=== PATIENT | male | born 1970 | race Two or more races ===

== ENCOUNTER 2019-05-17 10:47 | Observation (INO) | payer SELFPAY ==
--- NOTE | 2019-05-17 11:14 | ER Document Report ---
ED Medical Screen (RME) - General Chief Complaint: Hemorrhoids Stated Complaint: RECTAL PAIN Time Seen by Provider: 05/17/19 11:11 Mode of Arrival: Ambulatory Information source: Patient Notes: 48-year-old male with history of constipation and hemorrhoids presents to the emergency department with complaints of bleeding hemorrhoids. Reports he took a taxi here and blood was in his pants. Reports he used Preparation H without any relief of symptoms. I have greeted and performed a rapid initial assessment of this patient. A comprehensive ED assessment and evaluation of the patient, analysis of test results and completion of the medical decision making process will be conducted by additional ED providers. Dictation of this chart was performed using voice recognition software; therefo re, there may be some unintended grammatical errors. TRAVEL OUTSIDE OF THE [place] IN LAST 30 DAYS: No - Related Data Allergies/Adverse Reactions: acetaminophen [From Tylenol] Allergy (Verified 04/07/14 00:35) ibuprofen Allergy (Verified 04/07/14 00:35) Past Medical History - Social History Chew tobacco use (# tins/day): No Frequency of alcohol use: Occasional Drug Abuse: None Musculoskeltal Medical History: Reports Hx Musculoskeletal Trauma - Immunizations Hx Diphtheria, Pertussis, Tetanus Vaccination: No Physical Exam - Vital signs Vitals: Temp Pulse Resp BP Pulse Ox 98.2 F 73 16 152/106 H 99 05/17/19 10:52 05/17/19 10:52 05/17/19 10:52 05/17/19 10:52 05/17/19 10:52 Course - Vital Signs Vital signs: Temp Pulse Resp BP Pulse Ox 98.2 F 73 16 152/106 H 99 05/17/19 10:52 05/17/19 10:52 05/17/19 10:52 05/17/19 10:52 05/17/19 10:52
[2019-05-17 11:40] LABS: HEMATOCRIT 42.1 % (37.9-51.0); MEAN CORPUSCULAR VOLUME 87 fl (80-97); RED BLOOD COUNT 4.85 10^6/uL (4.35-5.55); RED CELL DISTRIBUTION WIDTH 12.7 % (11.5-14.0); WHITE BLOOD COUNT 3.6 10^3/uL (4.0-10.5)
[2019-05-17 12:15] LABS: HEMOGLOBIN 14.1 g/dL (13.5-17.0); MEAN CORPUSCULAR HEMOGLOBIN 29.1 pg (27.0-33.4)
[2019-05-17 12:16] LABS: MEAN CORPUSCULAR HGB CONC 33.5 g/dL (32.0-36.0)
[2019-05-17 12:20] LABS: ABSOLUTE LYMPHOCYTES# (MANUAL) 1.5 10^3/uL (0.5-4.7); ABSOLUTE MONOCYTES # (MANUAL) 0.1 10^3/uL (0.1-1.4); BAND NEUTROPHILS % (MANUAL) 1 % (3-5); BASOPHILS % (MANUAL) 3 % (0-2); EOSINOPHILS % (MANUAL) 1 % (0-6); LYMPHOCYTES % (MANUAL) 38 % (13-45); MONOCYTES % (MANUAL) 4 % (3-13); SEGMENTED NEUTROPHILS % (MAN) 50 % (42-78); TOTAL CELLS COUNTED 100
[2019-05-17 12:21] LABS: ANISOCYTOSIS SLIGHT; TARGET CELLS SLIGHT; TOXIC VACUOLATION PRESENT
[2019-05-17 12:22] LABS: PLATELET CLUMPS PRESENT; PLATELET COMMENT ADEQUATE; PLATELET COUNT 204 10^3/uL (150-450)
[2019-05-17 13:21] LABS: APPEARANCE,URINE CLEAR; BILIRUBIN,URINE NEGATIVE (NEGATIVE); COLOR,URINE YELLOW; GLUCOSE, URINE NEGATIVE (NEGATIVE); KETONES,URINE NEGATIVE (NEGATIVE); LEUKOCYTE ESTERASE,URINE NEGATIVE (NEGATIVE); NITRITE,URINE NEGATIVE (NEGATIVE); PROTEIN,URINE 100 mg/dL (NEGATIVE); URINE SPECIFIC GRAVITY 1.018; UROBILINOGEN,URINE NEGATIVE mg/dL (<2.0)
[2019-05-17] MEDS ORDERED: NORMAL SALINE 1000 ML 1,000 ML IV ONE ×2 (13:53→15:14)
--- NOTE | 2019-05-17 14:57 | ER Document Report ---
ED General - General Chief Complaint: Hemorrhoids Stated Complaint: RECTAL PAIN Time Seen by Provider: 05/17/19 11:11 Mode of Arrival: Ambulatory TRAVEL OUTSIDE OF THE [place] IN LAST 30 DAYS: No - HPI Notes: 48-year-old male presents the ED for complaints of having a bleeding hemorrhoid for the last week, has tried Preparation H without for relief. States pain is 7/10, throbbing. States his bleeding has subsided a little bit with Preparation H. Patient has had history of hemorrhoids in the past, has been able to manage them on his own, has never had rectal surgery. Denies any bleeding disorders, clotting disorders. Denies fevers, chills, chest pain,palpitations, shortness of breath, dyspnea, nausea, vomiting, diarrhea, abdominal pain, hematuria,neck pain, weakness, bowel or bladder dysfunction, saddle anesthesia, numbness or tingling in bilateral upper or lower extremities equally, muscle paralysis, weakness in bilateral upper or lower extremities equally or rash. - Related Data Allergies/Adverse Reactions: acetaminophen [From Tylenol] Allergy (Verified 04/07/14 00:35) ibuprofen Allergy (Verified 04/07/14 00:35) Past Medical History - General Information source: Patient - Social History Smoking Status: Former Smoker Chew tobacco use (# tins/day): No Frequency of alcohol use: Occasional Drug Abuse: None Family History: Reviewed & Not Pertinent Patient has suicidal ideation: No Patient has homicidal ideation: No Musculoskeletal Medical History: Reports Hx Musculoskeletal Trauma - Immunizations Hx Diphtheria, Pertussis, Tetanus Vaccination: No Review of Systems - Review of Systems Constitutional: No symptoms reported EENT: No symptoms reported Cardiovascular: No symptoms reported Respiratory: No symptoms reported Gastrointestinal: See HPI Genitourinary: No symptoms reported Male Genitourinary: No symptoms reported Musculoskeletal: No symptoms reported Skin: No symptoms reported Hematologic/Lymphatic: No symptoms reported Neurological/Psychological: No symptoms reported Physical Exam - Vital signs Vitals: Temp Pulse Resp BP Pulse Ox 98.2 F 73 16 152/106 H 99 05/17/19 10:52 05/17/19 10:52 05/17/19 10:52 05/17/19 10:52 05/17/19 10:52 - Notes Notes: PHYSICAL EXAMINATION: GENERAL: Well-appearing, well-nourished and in no acute distress. HEAD: Atraumatic, normocephalic. EYES: Pupils equal round and reactive to light, extraocular movements intact, sclera anicteric, conjunctiva are normal. ENT: Nares patent, oropharynx clear without exudates. Moist mucous membranes. NECK: Normal range of motion, supple without lymphadenopathy LUNGS: Breath sounds clear to auscultation bilaterally and equal. No wheezes rales or rhonchi. HEART: Regular rate and rhythm without murmurs ABDOMEN: Soft, nontender, nondistended abdomen. No guarding, no rebound. No masses appreciated. : Jose Gomez, RN tile grader, noted thrombosed external hemorrhoid, noted active bleeding. Musculoskeletal: Normal range of motion, no pitting or edema. No cyanosis. NEUROLOGICAL: Cranial nerves grossly intact. Normal speech, normal gait. Normal sensory, motor exams PSYCH: Normal mood, normal affect. SKIN: Warm, Dry, normal turgor, no rashes or lesions noted. Course - Re-evaluation Re-evalutation: 05/17/19 18:45 Afebrile slightly hypertensive in no distress. Consulted with Dr. Lance Cox, surgeon psychological operations, to assess patient at bedside for thrombosed hemorrhoid that needs surgery at 1530, at bedside, requested that patient had topical viscous lidocaine to numb patient, he will zenobia hemorrhoid at bedside. At 1800, Dr. Ramsey at bedside, was unable to zenobia at bedside, feels that patient needs to be brought to the OR, will admit patient to surgical service, pt was agreeable with plan of care. - Vital Signs Vital signs: Temp Pulse Resp BP Pulse Ox 98.2 F 73 16 152/106 H 99 05/17/19 10:52 05/17/19 10:52 05/17/19 10:52 05/17/19 10:52 05/17/19 10:52 - Laboratory Result Diagrams: 05/17/19 11:20 05/17/19 11:20 Laboratory results interpreted by me: 05/17/19 05/17/19 11:20 12:59 WBC 3.6 L Band Neutrophils % 1 L Basophils % (Manual) 3 H Urine Protein 100 H Urine Blood MODERATE H Discharge - Discharge Clinical Impression: Hemorrhoid, Thrombosed external hemorrhoid Condition: Stable Disposition: ADMITTED INPATIENT Admitting Provider: Surgicalist - Dr. Lance Cox Unit Admitted: OR
[2019-05-17] MEDS ORDERED: LIDOCAINE 1% INJ-PF (10 MG/ML) 30 ML SDV INJ ONE (15:28)
[2019-05-17] MEDS ORDERED: LIDOCAINE 4%/TETRACAINE 0.5%/EPI 0.18% 5 ML TOPICAL SOLN TOP ONE (15:28)
[2019-05-17] MEDS ORDERED: LIDOCAINE 1.5%/EPINEPHRINE INJ-PF 30 ML SDV INJ ONE (15:28)
[2019-05-17] MEDS ORDERED: LIDOCAINE 1%/EPINEPHRINE INJ 20 ML VIAL ONE (15:42)
[2019-05-17] MEDS ORDERED: LIDOCAINE 2%/EPINEPHRINE INJ 20 ML VIAL ONE (15:42)
[2019-05-17] MEDS ORDERED: DEXMEDETOMIDINE INJ 80 MCG/20 ML VIAL IV ONE (17:59)
[2019-05-17] MEDS ORDERED: MIDAZOLAM 2 MG/2 ML INJ ONE (17:59)
[2019-05-17] MEDS ORDERED: FENTANYL CITRATE INJ/PF 100 MCG/2 ML AMPUL ONE (17:59)
[2019-05-17] MEDS ORDERED: PROPOFOL INJ 200 MG/20 ML VIAL IV ONE (18:00)
[2019-05-17] MEDS ORDERED: PIPERACILLIN/TAZOBACTAM 3.375 GM VIAL IV ONE (18:04)
[2019-05-17] MEDS ORDERED: BUPIVACAINE HCL 0.5%-EPI 1:200000 INJ/PF 30 ML VIAL ONE (18:11)
--- NOTE | 2019-05-17 18:11 | PDOC H&P ---
History of Present Illness Admission Date/PCP: 05/17/19 Patient complains of: pains rectal area History of Present Illness: DESI OLIVARES is a 48 year old male with known hemorrhoids past 8- 10years. At times it will prolapse but he still can push it back in. % days ago started having constipation followed by painful hemorrhoids. He was not able to push it back in because of severe pains. Today felt warm and started bleeding from hemorrhoid area. Social History Smoking Status: Former Smoker Family History Family History: Reviewed & Not Pertinent Parental Family History Reviewed: Yes Children Family History Reviewed: No Sibling(s) Family History Reviewed.: No Medication/Allergy Home Medications: No Home Medications 04/07/14 Allergies/Adverse Reactions: acetaminophen [From Tylenol] Allergy (Verified 04/07/14 00:35) ibuprofen Allergy (Verified 04/07/14 00:35) Review of Systems Constitutional: PRESENT: as per HPI Gastrointestinal: PRESENT: constipation, other - rectal pains Physical Exam Vital Signs: Temp Pulse Resp BP Pulse Ox 98.2 F 73 16 152/106 H 99 05/17/19 10:52 05/17/19 10:52 05/17/19 10:52 05/17/19 10:52 05/17/19 10:52 Intake & Output 05/16/19 05/17/19 05/18/19 06:59 06:59 06:59 Intake Total 1999 Balance 1999 Weight 55.6 kg General appearance: PRESENT: severe distress Head exam: PRESENT: atraumatic Eye exam: PRESENT: conjunctiva pink Mouth exam: PRESENT: dry mucosa Neck exam: PRESENT: full ROM Respiratory exam: PRESENT: clear to auscultation rosemarie Cardiovascular exam: PRESENT: RRR Pulses: PRESENT: normal radial pulses Vascular exam: PRESENT: normal capillary refill GI/Abdominal exam: PRESENT: soft Rectal exam: PRESENT: tenderness - Prolapsed hemorrhoids very tender more on the right side. Bleeding noted on the left side especially when touching and pushing it out Attempted to push it back in but unable to. Very tender despite topical lidocaine Extremities exam: PRESENT: full ROM Musculoskeletal exam: PRESENT: ambulatory Neurological exam: PRESENT: alert, oriented to person, oriented to place, oriented to time, oriented to situation Psychiatric exam: PRESENT: appropriate affect Skin exam: PRESENT: normal color, warm Results Laboratory Results: 05/17/19 11:20 05/17/19 15:49 05/17/19 05/17/19 05/17/19 11:20 11:20 12:59 WBC 3.6 L RBC 4.85 Hgb 14.1 Hct 42.1 MCV 87 MCH 29.1 MCHC 33.5 RDW 12.7 Plt Count 204 Seg Neutrophils % Not Reportable Sodium Cancelled Cancelled Potassium Cancelled Cancelled Chloride Cancelled Cancelled Carbon Dioxide Cancelled Cancelled Anion Gap Cancelled Cancelled BUN Cancelled Cancelled Creatinine Cancelled Cancelled Est GFR ( Amer) Cancelled Cancelled Est GFR (Non-Af Amer) Cancelled Cancelled Glucose Cancelled Cancelled Calcium Cancelled Cancelled Total Bilirubin Cancelled Cancelled AST Cancelled Cancelled Alkaline Phosphatase Cancelled Cancelled Total Protein Cancelled Cancelled Albumin Cancelled Cancelled Urine Color Urine Appearance Urine pH Ur Specific [place] Urine Protein Urine Glucose (UA) Urine Ketones Urine Blood Urine Nitrite Ur Leukocyte Esterase Urine WBC (Auto) Urine RBC (Auto) 05/17/19 05/17/19 05/17/19 12:59 13:20 15:49 WBC RBC Hgb Hct MCV MCH MCHC RDW Plt Count Seg Neutrophils % Sodium Cancelled Cancelled Potassium Cancelled Cancelled Chloride Cancelled Cancelled Carbon Dioxide Cancelled Cancelled Anion Gap Cancelled Cancelled BUN Cancelled Cancelled Creatinine Cancelled Cancelled Est GFR ( Amer) Cancelled Cancelled Est GFR (Non-Af Amer) Cancelled Cancelled Glucose Cancelled Cancelled Calcium Cancelled Cancelled Total Bilirubin Cancelled Cancelled AST Cancelled Cancelled Alkaline Phosphatase Cancelled Cancelled Total Protein Cancelled Cancelled Albumin Cancelled Cancelled Urine Color YELLOW Urine Appearance CLEAR Urine pH 6.0 Ur Specific [place] 1.018 Urine Protein 100 H Urine Glucose (UA) NEGATIVE Urine Ketones NEGATIVE Urine Blood MODERATE H Urine Nitrite NEGATIVE Ur Leukocyte Esterase NEGATIVE Urine WBC (Auto) 1 Urine RBC (Auto) 14 Assessment & Plan - Diagnosis (1) prolapsed,thrombosed,bleeding hemorrhoid Is this a current diagnosis for this admission?: Yes - Time Time Spent: 30 to 50 Minutes - Inpatient Certification Medical Necessity: Need For IV Fluids, Need for IV Antibiotics, Need for Surgery - Plan Summary Plan Summary: He has a slight shift to the left on his CBC. He felt feverish. Will start IV antibiotics Will do emergency hemorrhoidectomy in the OR
[2019-05-17 18:39] LABS: ABSOLUTE BASOPHILS # (AUTO) 0.1 10^3/uL (0.0-0.2); ABSOLUTE LYMPHOCYTES (AUTO) 1.3 10^3/uL (0.5-4.7); ABSOLUTE MONOCYTES (AUTO) 0.2 10^3/uL (0.1-1.4); ABSOLUTE NEUT (AUTO) 2.5 10^3/uL (1.7-8.2); BASOPHILS % (AUTO) 2.3 % (0-2); EOSINOPHILS % (AUTO) 0.5 % (0-6); HEMATOCRIT 42.5 % (37.9-51.0); LYMPHOCYTES % (AUTO) 31.9 % (13-45); MEAN CORPUSCULAR VOLUME 87 fl (80-97); MONOCYTES % (AUTO) 4.4 % (3-13); PLATELET COUNT 202 10^3/uL (150-450); RED BLOOD COUNT 4.86 10^6/uL (4.35-5.55); RED CELL DISTRIBUTION WIDTH 12.9 % (11.5-14.0); SEGMENTED NEUTROPHILS % (AUTO) 60.9 % (42-78); TOTAL CELLS COUNTED % (AUTO) 100 %; WHITE BLOOD COUNT 4.1 10^3/uL (4.0-10.5)
[2019-05-17 18:49] LABS: HEMOGLOBIN 14.3 g/dL (13.5-17.0); MEAN CORPUSCULAR HEMOGLOBIN 29.3 pg (27.0-33.4); MEAN CORPUSCULAR HGB CONC 33.5 g/dL (32.0-36.0)
[2019-05-17] MEDS ORDERED: LIDOCAINE 2% JELLY 30 ML TUBE ONE (19:12)
[2019-05-17] MEDS ORDERED: MEPERIDINE HCL/PF INJ 25 MG/1 ML DISP.SYRIN IV PRN (19:17)
[2019-05-17] MEDS ORDERED: PROMETHAZINE HCL INJ 25 MG/1 ML VIAL IV PRN ×2 (19:17)
[2019-05-17] MEDS ORDERED: DIPHENHYDRAMINE HCL 50 MG/ML VIAL IV PRN (19:17)
[2019-05-17] MEDS ORDERED: MORPHINE SULFATE 10 MG/ML INJ IV PRN ×2 (19:17→19:29)
[2019-05-17] MEDS ORDERED: FENTANYL CITRATE INJ/PF 100 MCG/2 ML AMPUL IV PRN ×3 (19:17)
[2019-05-17] MEDS ORDERED: ONDANSETRON HCL INJ/PF 4 MG/2 ML SDV IV PRN (19:28)
[2019-05-17] MEDS ORDERED: NORMAL SALINE 1000 ML 1,000 ML IV PRN (19:30)
--- NOTE | 2019-05-17 19:32 | Operative Report ---
Operative Report DATE OF SURGERY: 05/17/19 PREOPERATIVE DIAGNOSIS: Prolapsed ,thrombosed,bleeding external hemorrhoid POSTOPERATIVE DIAGNOSIS: same OPERATION: Hemorrhoidectomy SURGEON: JANEEN KENT ANESTHESIA: LMAC TISSUE REMOVED OR ALTERED: Hemorrhoid COMPLICATIONS: None ESTIMATED BLOOD LOSS: 5 cc QUANTITATIVE BLOOD LOSS: 5 INTRAOPERATIVE FINDINGS: Prolapse, thrombosed and bleeding hemorrhoid right side PROCEDURE: Patient was placed in prone position and given adequate IV sedation. The perianal area was then prepped and draped in the usual sterile fashion. Appropriate timeout was then called. Local anesthesia was then injected surrounding the right hemorrhoid. Digital exam was done and no evidence of internal hemorrhoid or any other lesions noted by the examining finger. The hemorrhoid appears to be only on the right side occupying the whole right side of the anorectal area. The bleeding appears to have stopped. The hemorrhoid appears to be thrombosed and prolapse. It was then grasped with an Allis clamp and then serially coagulated and divided with the use of the LigaSure. The whole hemorrhoid was removed. It was cauterized at the junction of the mucocutaneous area. No bleeding after complete removal of the hemorrhoid. The hemorrhoid was passed to the table to be sent for pathology. No evidence of abscess or purulent drainage around the area of the hemorrhoid. Patient had a fever of 100 degrees in the OR. The rectal area was dilated to at least 2 fingers. It was then further prepped with again with Betadine and a sponge stick. A Gelfoam with surrounding lidocaine gel was then placed over the operative site and used as tampon primarily for hemostasis. Sterile dressing with 4 x 4 and ABD pad was placed over the operative site. Patient tolerated procedure well needle was sponge counts were all correct. Patient then brought to the the PACU in stable condition.
[2019-05-17] MEDS ORDERED: OXYCODONE-ACETAMINOPHEN 5-325 MG TABLET PO PRN (20:25)
[2019-05-17] MEDS: PIPERACILLIN SODIUM/TAZOBACTAM 3.375 GM in NORMAL SALINE 100 ML IV SCH (23:32)
[2019-05-18] MEDS ORDERED: PIPERACILLIN/TAZOBACTAM 3.375 GM VIAL IV SCH
[2019-05-18 04:58] LABS: HEMATOCRIT 40.3 % (37.9-51.0); MEAN CORPUSCULAR VOLUME 87 fl (80-97); PLATELET COUNT 186 10^3/uL (150-450); RED BLOOD COUNT 4.65 10^6/uL (4.35-5.55); RED CELL DISTRIBUTION WIDTH 12.8 % (11.5-14.0)
[2019-05-18 05:26] LABS: WHITE BLOOD COUNT 10.2 10^3/uL (4.0-10.5)
[2019-05-18 05:27] LABS: HEMOGLOBIN 12.4 g/dL (13.5-17.0); MEAN CORPUSCULAR HEMOGLOBIN 26.7 pg (27.0-33.4)
[2019-05-18 05:28] LABS: MEAN CORPUSCULAR HGB CONC 29.2 g/dL (32.0-36.0)
[2019-05-18] MEDS: PIPERACILLIN SODIUM/TAZOBACTAM 3.375 GM in NORMAL SALINE 100 ML IV SCH ×2 (06:07→11:42)
--- NOTE | 2019-05-18 11:41 | PDOC DISCHARGE SUMMARY ---
General - Admit/Disc Date/PCP Admission Date/Primary Care Provider: 05/17/19 20:18 Discharge Date: 05/18/19 - Discharge Diagnosis Final Diagnosis: prolapsed, bleeding,thrombosed external hemorrhoid unable to be reduced [id number] hemorrhoid with bleeding ,prolapsed and thrombosed - Assessment Summary: Patient has been complaining of pains along the hemorrhoid site for the past few days. He went to the ED where he was noted to have very tender hemorrhoid and appears to be prolapse and thrombosed with some bleeding. Patient taken to the OR where hemorrhoidectomy was performed. Patient continue IV antibiotics. He had a low-grade fever in the OR of about 100. Because of this patient was given antibiotics overnight. On the morning of 05/18/2019 patient feels a lot better and just had a bowel movement. No bleeding from the operative site. Patient feels good. He was instructed to do sitz bath or running warm water go over the operative site for about 5 minutes twice a day. He was instructed just to take Tylenol PRN for pain. Was able to take Percocet without any problems and therefore doubt his allergy to Tylenol. Patient instructed to follow-up in the surgical clinic in 2weeks. - Additional Information Resuscitation Status: Full Code Referrals: [facility] [Provider Group] - 05/22/19 2:45 pm Home Medications: No Home Medications 04/07/14 Physical Exam Vital Signs: Temp Pulse Resp BP Pulse Ox 98.2 F 61 16 154/97 H 98 05/18/19 07:59 05/18/19 07:59 05/18/19 07:59 05/18/19 07:59 05/18/19 07:59 Intake & Output 05/17/19 05/18/19 05/19/19 06:59 06:59 06:59 Intake Total 5221 Output Total 1740 Balance 3481 Weight 56.7 kg Results Laboratory Results: WBC 10.2 10^3/uL (4.0-10.5) D 05/18/19 03:57 RBC 4.65 10^6/uL (4.35-5.55) 05/18/19 03:57 Hgb 12.4 g/dL (13.5-17.0) L 05/18/19 03:57 Hct 40.3 % (37.9-51.0) 05/18/19 03:57 MCV 87 fl (80-97) 05/18/19 03:57 MCH 26.7 pg (27.0-33.4) L 05/18/19 03:57 MCHC 29.2 g/dL (32.0-36.0) L 05/18/19 03:57 RDW 12.8 % (11.5-14.0) 05/18/19 03:57 Plt Count 186 10^3/uL (150-450) 05/18/19 03:57 Lymph % (Auto) 31.9 % (13-45) 05/17/19 18:20 [place] % (Auto) 4.4 % (3-13) 05/17/19 18:20 Eos % (Auto) 0.5 % (0-6) 05/17/19 18:20 Baso % (Auto) 2.3 % (0-2) H 05/17/19 18:20 Absolute Neuts (auto) 2.5 10^3/uL (1.7-8.2) 05/17/19 18:20 Absolute Lymphs (auto) 1.3 10^3/uL (0.5-4.7) 05/17/19 18:20 Absolute Monos (auto) 0.2 10^3/uL (0.1-1.4) 05/17/19 18:20 Absolute Eos (auto) 0.0 10^3/uL (0.0-0.6) 05/17/19 18:20 Absolute Basos (auto) 0.1 10^3/uL (0.0-0.2) 05/17/19 18:20 Total Counted 100 05/17/19 11:20 Seg Neutrophils % 60.9 % (42-78) 05/17/19 18:20 Seg Neuts % (Manual) 50 % (42-78) 05/17/19 11:20 Band Neutrophils % 1 % (3-5) L 05/17/19 11:20 Lymphocytes % (Manual) 38 % (13-45) 05/17/19 11:20 Atypical Lymphs % 3 % (0) 05/17/19 11:20 Monocytes % (Manual) 4 % (3-13) 05/17/19 11:20 Eosinophils % (Manual) 1 % (0-6) 05/17/19 11:20 Basophils % (Manual) 3 % (0-2) H 05/17/19 11:20 Abs Neuts (Manual) 1.8 10^3/uL (1.7-8.2) 05/17/19 11:20 Abs Lymphs (Manual) 1.5 10^3/uL (0.5-4.7) 05/17/19 11:20 Abs Monocytes (Manual) 0.1 10^3/uL (0.1-1.4) 05/17/19 11:20 Absolute Eos (Manual) 0.0 10^3/uL (0.0-0.6) 05/17/19 11:20 Abs Basophils (Manual) 0.1 10^3/uL (0.0-0.2) 05/17/19 11:20 Toxic Vacuolation PRESENT 05/17/19 11:20 Clumped Platelets PRESENT 05/17/19 11:20 Platelet Comment ADEQUATE 05/17/19 11:20 Anisocytosis SLIGHT 05/17/19 11:20 Target Cells SLIGHT 05/17/19 11:20 PT Cancelled 05/17/19 18:20 INR Cancelled 05/17/19 18:20 INR (Anticoag Therapy) Cancelled 05/17/19 18:20 APTT Cancelled 05/17/19 15:49 Sodium Cancelled 05/17/19 18:20 Potassium Cancelled 05/17/19 18:20 Chloride Cancelled 05/17/19 18:20 Carbon Dioxide Cancelled 05/17/19 18:20 Anion Gap Cancelled 05/17/19 18:20 BUN Cancelled 05/17/19 18:20 Creatinine Cancelled 05/17/19 18:20 Est GFR ( Amer) Cancelled 05/17/19 18:20 Est GFR (Non-Af Amer) Cancelled 05/17/19 18:20 Est GFR (MDRD) Non-Af Cancelled 05/17/19 18:20 Glucose Cancelled 05/17/19 18:20 Calcium Cancelled 05/17/19 18:20 Total Bilirubin Cancelled 05/17/19 18:20 Direct Bilirubin Cancelled 05/17/19 18:20 Neonat Total Bilirubin Cancelled 05/17/19 18:20 Neonat Direct Bilirubin Cancelled 05/17/19 18:20 Neonat Indirect Bili Cancelled 05/17/19 18:20 AST Cancelled 05/17/19 18:20 ALT Cancelled 05/17/19 18:20 Alkaline Phosphatase Cancelled 05/17/19 18:20 Total Protein Cancelled 05/17/19 18:20 Albumin Cancelled 05/17/19 18:20 EGFR Cancelled 05/17/19 18:20 Urine Color YELLOW 05/17/19 12:59 Urine Appearance CLEAR 05/17/19 12:59 Urine pH 6.0 (5.0-9.0) 05/17/19 12:59 Ur Specific [place] 1.018 05/17/19 12:59 Urine Protein 100 mg/dL (NEGATIVE) H 05/17/19 12:59 Urine Glucose (UA) NEGATIVE mg/dL (NEGATIVE) 05/17/19 12:59 Urine Ketones NEGATIVE mg/dL (NEGATIVE) 05/17/19 12:59 Urine Blood MODERATE (NEGATIVE) H 05/17/19 12:59 Urine Nitrite NEGATIVE (NEGATIVE) 05/17/19 12:59 Urine Bilirubin NEGATIVE (NEGATIVE) 05/17/19 12:59 Urine Urobilinogen NEGATIVE mg/dL (<2.0) 05/17/19 12:59 Ur Leukocyte Esterase NEGATIVE (NEGATIVE) 05/17/19 12:59 Urine WBC (Auto) 1 /HPF 05/17/19 12:59 Urine RBC (Auto) 14 /HPF 05/17/19 12:59 Urine Mucus (Auto) RARE /LPF 05/17/19 12:59 Urine Ascorbic Acid NEGATIVE (NEGATIVE) 05/17/19 12:59
[2019-05-18 11:46] VITALS: BP 156/103
== END 2019-05-18 15:46 | disposition home or self-care (01) ==
LOC: ER 10:47 → 4S 20:18
PROVIDERS: ATTEND Surgery
PROC: 06BY0ZC Excision of Hemorrhoidal Plexus, Open Approach (ICD-10-PCS; principal; 2019-05-17 17:54)
DX: K64.2 Third degree hemorrhoids (principal); R50.9 Fever, unspecified; K59.00 Constipation, unspecified; E78.5 Hyperlipidemia, unspecified; Z87.891 Personal history of nicotine dependence
CPT/HCPCS: 99284; 96361; 96374; 36415 ×2; 87040; 85025; 85027; 81001; 88304 ×2; 00902; 46320; G0378 ×2; J2250; J3490 ×4; J3010; J7050 ×2; J7030; J2704; J2543 ×2; 902

== ENCOUNTER 2020-02-02 13:44 | Emergency (ER) | payer SELFPAY ==
--- NOTE | 2020-02-02 14:15 | ER Document Report ---
ED Medical Screen (RME) - General Chief Complaint: Abdominal Pain Stated Complaint: ABDOMINAL SWELLING/FEET SWELLING Time Seen by Provider: 02/02/20 14:08 Mode of Arrival: Ambulatory Information source: Patient Notes: 49-year-old male presented to ED for complaint of abdominal distention for the last 10 days. He states it is getting tighter. He also has bilateral pedal edema. He states he drinks daily with a lot more on the weekend. He states he used to be a very heavy drinker but has slowed down some. He states he does not smoke or use any illicit drugs. He states he does not work. He states he lives with a roommate. He is alert oriented respirations regular nonlabored. He states he has some mild shortness of breath. I have greeted and performed a rapid initial assessment of this patient. A comprehensive ED assessment and evaluation of the patient, analysis of test results and completion of medical decision making process will be conducted by an additional ED providers. TRAVEL OUTSIDE OF THE [place] IN LAST 30 DAYS: No - Related Data Allergies/Adverse Reactions: acetaminophen [From Tylenol] Allergy (Verified 02/02/20 14:03) ibuprofen Allergy (Verified 02/02/20 14:03) Past Medical History - Social History Chew tobacco use (# tins/day): No Frequency of alcohol use: Heavy Drug Abuse: None Musculoskeltal Medical History: Reports Hx Musculoskeletal Trauma - Immunizations Hx Diphtheria, Pertussis, Tetanus Vaccination: No Physical Exam - Vital signs Vitals: Temp Pulse Resp BP Pulse Ox 98.1 F 70 16 127/90 H 97 02/02/20 13:59 02/02/20 13:59 02/02/20 13:59 02/02/20 13:59 02/02/20 13:59 Course - Vital Signs Vital signs: Temp Pulse Resp BP Pulse Ox 98.1 F 70 16 127/90 H 97 02/02/20 14:04 02/02/20 13:59 02/02/20 13:59 02/02/20 13:59 02/02/20 13:59
[2020-02-02 14:40] LABS: HEMATOCRIT 34.5 % (37.9-51.0); HEMOGLOBIN 11.8 g/dL (13.5-17.0); MEAN CORPUSCULAR HEMOGLOBIN 33.1 pg (27.0-33.4); MEAN CORPUSCULAR HGB CONC 34.2 g/dL (32.0-36.0); MEAN CORPUSCULAR VOLUME 97 fl (80-97); PLATELET COUNT 234 10^3/uL (150-450); RED BLOOD COUNT 3.57 10^6/uL (4.35-5.55); RED CELL DISTRIBUTION WIDTH 15.1 % (11.5-14.0); WHITE BLOOD COUNT 4.5 10^3/uL (4.0-10.5)
[2020-02-02 14:46] LABS: APPEARANCE,URINE CLEAR; BILIRUBIN,URINE NEGATIVE (NEGATIVE); COLOR,URINE YELLOW; GLUCOSE, URINE NEGATIVE (NEGATIVE); KETONES,URINE NEGATIVE (NEGATIVE); LEUKOCYTE ESTERASE,URINE NEGATIVE (NEGATIVE); NITRITE,URINE NEGATIVE (NEGATIVE); PROTEIN,URINE NEGATIVE (NEGATIVE); URINE SPECIFIC GRAVITY 1.004; UROBILINOGEN,URINE NEGATIVE mg/dL (<2.0)
[2020-02-02 14:56] LABS: ALBUMIN 3.1 g/dL (3.5-5.0); ALKALINE PHOSPHATASE 386 U/L (38-126); ANION GAP 5 (5-19); ASPARTATE AMINO TRANSFERASE 114 U/L (17-59); BILIRUBIN,DIRECT 2.7 mg/dL (0.0-0.4); BILIRUBIN,TOTAL 3.8 mg/dL (0.2-1.3); BLOOD UREA NITROGEN 5 mg/dL (7-20); CALCIUM 8.7 mg/dL (8.4-10.2); CARBON DIOXIDE 27 mmol/L (22-30); CHLORIDE 102 mmol/L (98-107); GLUCOSE 99 mg/dL (75-110); POTASSIUM 3.8 mmol/L (3.6-5.0); TOTAL PROTEIN 7.2 g/dL (6.3-8.2)
[2020-02-02 15:04] LABS: ABSOLUTE LYMPHOCYTES# (MANUAL) 0.6 10^3/uL (0.5-4.7); ABSOLUTE MONOCYTES # (MANUAL) 0.4 10^3/uL (0.1-1.4); BASOPHILS % (MANUAL) 3 % (0-2); EOSINOPHILS % (MANUAL) 1 % (0-6); LYMPHOCYTES % (MANUAL) 8 % (13-45); MONOCYTES % (MANUAL) 8 % (3-13); SEGMENTED NEUTROPHILS % (MAN) 75 % (42-78); TOTAL CELLS COUNTED 100
[2020-02-02 15:06] LABS: ANISOCYTOSIS SLIGHT; PLATELET COMMENT ADEQUATE; POIKILOCYTOSIS SLIGHT; POLYCHROMASIA 1+; TARGET CELLS SLIGHT; TEAR DROP CELLS SLIGHT
--- NOTE | 2020-02-02 15:17 | ER Document Report ---
ED GI/ - General Chief Complaint: Abdominal Pain Stated Complaint: ABDOMINAL SWELLING/FEET SWELLING Time Seen by Provider: 02/02/20 14:08 Mode of Arrival: Ambulatory Information source: Patient Notes: 49-year-old male with no previous medical problems presents to the emergency room complaining of worsening pedal edema and abdominal distention that he noticed for the past 10 days. Patient states he has a long history of drinking alcohol over the past year has been trying to decrease his use to just a 12 pack a week where he used to drink a 12 pack a day. States that he has not had any alcohol in the past 6 days. States he did have some tremors for the first day but has not had any tremor since. States he presents to the emergency room due to the abdominal distention and swelling of the feet not looking to go to detox as he feels he detoxed himself. States he Stopped drinking when he realized his feet were swelling in his belly was becoming distended. He denies nausea, vomi ting, no abdominal pain. He denies any suicidal or homicidal ideation TRAVEL OUTSIDE OF THE [place] IN LAST 30 DAYS: No - Related Data Allergies/Adverse Reactions: acetaminophen [From Tylenol] Allergy (Verified 02/02/20 14:03) ibuprofen Allergy (Verified 02/02/20 14:03) Past Medical History - General Information source: Patient - Social History Smoking Status: Never Smoker Chew tobacco use (# tins/day): No Frequency of alcohol use: Heavy Drug Abuse: None Family History: Reviewed & Not Pertinent Patient has homicidal ideation: No Musculoskeletal Medical History: Reports Hx Musculoskeletal Trauma - Immunizations Hx Diphtheria, Pertussis, Tetanus Vaccination: No Review of Systems - Review of Systems Constitutional: No symptoms reported EENT: No symptoms reported Cardiovascular: Edema Respiratory: No symptoms reported Gastrointestinal: Abdomen distended Genitourinary: No symptoms reported Musculoskeletal: No symptoms reported Skin: No symptoms reported Neurological/Psychological: No symptoms reported -: Yes All other systems reviewed and negative Physical Exam - Vital signs Vitals: Temp Pulse Resp BP Pulse Ox 98.1 F 70 16 127/90 H 97 02/02/20 13:59 02/02/20 13:59 02/02/20 13:59 02/02/20 13:59 02/02/20 13:59 - General General appearance: Alert In distress: Mild - HEENT Head: Normocephalic, Atraumatic Eyes: Scleral icterus Conjunctiva: Icteric Extraocular movements intact: Yes Pupils: PERRL - Respiratory Respiratory status: No respiratory distress Chest status: Nontender Breath sounds: Normal Chest palpation: Normal - Cardiovascular Rhythm: Regular Heart sounds: Normal auscultation Murmur: No Friction rub: No Terry's crunch: No - Abdominal Inspection: Other - Moderately distended Distension: Distended Bowel sounds: Normal Tenderness: Nontender Organomegaly: No organomegaly - Back Back: Normal, Nontender. No: CVA tenderness - Extremities General lower extremity: Edema - 2+ pitting edema bilaterally. - Neurological Neuro grossly intact: Yes Cognition: Normal Orientation: AAOx4 Amy Coma Scale Eye Opening: Spontaneous Amy Coma Scale Verbal: Oriented [place] Coma Scale Motor: Obeys Commands [place] Coma Scale Total: 15 Speech: Normal Motor strength normal: LUE, RUE, LLE, RLE Sensory: Normal - Psychological Associated symptoms: Normal affect, Normal mood - Skin Skin Temperature: Warm Skin Moisture: Dry Skin Color: Jaundiced Course - Re-evaluation Re-evalutation: 02/02/20 18:25 Patient is resting comfortably he remains pain-free. All test results were reviewed with the patient. He is aware that I did speak with the hospitalist he does not meet criteria for admission at this time. Counseled in length about the need to continue with alcohol cessation, imperative that he follow-up outpatient with [facility] he is to call them on Tuesday for a follow-up appointment. He is to return to the emergency room for any pain, worsening swelling of his feet, abdomen or any other new symptoms. Patient was given strict return to the emergency room guidelines. Return for any new or worsening symptoms. All questions were answered. Patient verbalized understanding and agrees with plan of care. - Vital Signs Vital signs: Temp Pulse Resp BP Pulse Ox 98.1 F 70 16 127/90 H 97 02/02/20 14:04 02/02/20 13:59 02/02/20 13:59 02/02/20 13:59 02/02/20 13:59 - Laboratory Result Diagrams: 02/02/20 14:16 02/02/20 14:16 Laboratory results interpreted by me: 02/02/20 02/02/20 02/02/20 14:16 14:16 14:16 RBC 3.57 L Hgb 11.8 L Hct 34.5 L RDW 15.1 H Lymphocytes % (Manual) 8 L Basophils % (Manual) 3 H Sodium 134.3 L BUN 5 L Creatinine 0.48 L Total Bilirubin 3.8 H Direct Bilirubin 2.7 H AST 114 H ALT 58 H Alkaline Phosphatase 386 H NT-Pro-B Natriuret Pep 221 H Albumin 3.1 L Urine Blood 02/02/20 14:16 RBC Hgb Hct RDW Lymphocytes % (Manual) Basophils % (Manual) Sodium BUN Creatinine Total Bilirubin Direct Bilirubin AST ALT Alkaline Phosphatase NT-Pro-B Natriuret Pep Albumin Urine Blood SMALL H - Diagnostic Test Radiology reviewed: Reports reviewed - Consults Dr. Alfaro Time consulted: 18:24 Reason for consultation: 02/02/20 18:25 Possible admission, outpatient follow-up Discharge - Discharge Clinical Impression: Kidney stone on right side, Hepatomegaly, Jaundice, Peripheral edema Abdominal ascites Qualifiers: Ascites type: other type Qualified Code(s): R18.8 - Other ascites Condition: Stable Disposition: HOME, SELF-CARE Instructions: Edema, Peripheral ([facility]), Kidney Stone ([facility]), Cirrhosis ([facility]), Jaundice ([facility]) Additional Instructions: Your symptoms should improve over the course of the next one week. If you continue to have pain for greater than one week or your pain is not controlled with the pain medications that you have been sent home with you need to return to the emergency department. Please also return if you develop fever, persistent vomiting, or any other symptoms that are concerning to you. You are also been sent home with a medication called Flomax to help pass the stone. Please follow-up with urology in the next 2-3 days. It is imperative that you do not drink alcohol. Is imperative that you follow- [facility] with [facility] as [facility] as possible for follow-up care return for any new or worsening symptoms. Prescriptions: Tamsulosin HCl [Flomax 0.4 mg Cap.sr] 0.4 mg PO DAILY #7 cap.sr.24h Referrals: [facility] [Provider Group] - Follow up in 3-5 days (You need to call on Tuesday for an outpatient follow-up appointment.)
--- NOTE | 2020-02-02 15:28 | RADIOLOGY REPORT (SQ) ---
EXAM DESCRIPTION: CT ABD/PELVIS NO ORAL OR IV IMAGES COMPLETED DATE/TIME: 02/02/2020 3:08 pm REASON FOR STUDY: abdominal distention heavy drinker COMPARISON: CT abdomen pelvis 02/10/2014 TECHNIQUE: CT scan of the abdomen and pelvis performed without intravenous or oral contrast. Images reviewed with lung, soft tissue, and bone windows. Reconstructed coronal and sagittal MPR images revi ewed. All images stored on PACS. All CT scanners at this facility use dose modulation, iterative reconstruction, and/or weight based d osing when appropriate to reduce radiation dose to as low as reasonably achievable (ALARA). [facility]: Dose Right [facility]: CareDose [facility]: Dose Right [facility]: Teradose 4D [facility]: Smart Indelsul RADIATION DOSE: CT Rad equipment meets quality standard of care and radiation dose reduction techniq ues were employed. CTDIvol: 4.9 mGy. DLP: 275 mGy-cm.mGy. LIMITATIONS: None. FINDINGS: LOWER CHEST: No significant findings. No nodules or infiltrates. NON-CONTRASTED LIVER, SPLEEN, ADRENALS: Hepatomegaly. Increased size of a 1.9 cm hypodense left hepa tic lobe lesion, previously characterized as a cyst measuring 1 cm PANCREAS: No masses. No peripancreatic inflammatory changes. GALLBLADDER: Mildly hydropic measuring 4.4 cm in transverse dimension. No radiopaque gallstones. RIGHT KIDNEY AND URETER: Stable renal cystic lesions. Assessment limited by lack of IV contrast. 5 mm inferior pole nonobstructing nephrolith. No hydronephrosis or hydroureter. LEFT KIDNEY AND URETER: Stable renal cystic lesions. Assessment limited by lack of IV contrast. Sev eral inferior pole nonobstructing nephroliths measuring up to 5 mm. No hydronephrosis or hydrourete r. AORTA AND RETROPERITONEUM: No aneurysm. No retroperitoneal masses or adenopathy. BOWEL AND PERITONEAL CAVITY: No obvious masses or inflammatory changes. Moderate ascites. APPENDIX: Normal. PELVIS, BLADDER, AND ABDOMINAL WALL:No abnormal masses. No free fluid. Bladder normal. BONES: Old bilateral rib fractures. OTHER: No other significant finding. IMPRESSION: Moderate ascites. Unchanged hepatomegaly. Mildly hydropic gallbladder. Nonobstructing bilateral nephrolithiasis. COMMENT: Quality ID # [id number]: Final reports with documentation of one or more dose reduction techniques (e.g., Automated exposure control, adjustment of the mA and/or kV according to patient size, use of iterative reconstruction technique) TECHNICAL DOCUMENTATION: JOB ID: [id number] 2010 [employer]- All Rights Reserved Reading location - IP/workstation name: [email or web address]
--- NOTE | 2020-02-02 15:30 | RADIOLOGY REPORT (SQ) ---
EXAM DESCRIPTION: CHEST 2 VIEWS IMAGES COMPLETED DATE/TIME: 02/02/2020 2:00 pm REASON FOR STUDY: pedal edema bilateral. COMPARISON: None. EXAM PARAMETERS: NUMBER OF VIEWS: two views TECHNIQUE: Digital Frontal and Lateral radiographic views of the chest acquired. RADIATION DOSE: NA LIMITATIONS: none FINDINGS: LUNGS AND PLEURA: No opacities, masses or pneumothorax. No pleural effusion. MEDIASTINUM AND HILAR STRUCTURES: No masses or contour abnormalities. HEART AND VASCULAR STRUCTURES: Heart normal size. No evidence for failure. BONES: No acute findings. HARDWARE: None in the chest. OTHER: No other significant finding. IMPRESSION: NO ACUTE RADIOGRAPHIC FINDING IN THE CHEST. TECHNICAL DOCUMENTATION: JOB ID: [id number] 2010 [employer]- All Rights Reserved Reading location - IP/workstation name: [email or web address]
--- NOTE | 2020-02-02 17:21 | RADIOLOGY REPORT (SQ) ---
EXAM DESCRIPTION: U/S ABDOMEN COMPLETE W/DOPPLER IMAGES COMPLETED DATE/TIME: 02/02/2020 4:57 pm REASON FOR STUDY: abdominal pain/distention COMPARISON: CT abdomen pelvis performed earlier in the same day. TECHNIQUE: Dynamic and static grayscale images acquired of the abdomen and recorded on PACS. Additio nal selected color Doppler and spectral images recorded. Note: Study does not meet criteria for complete doppler/duplex scan LIMITATIONS: None. FINDINGS: PANCREAS: No masses. Visualized pancreatic duct normal caliber. LIVER: Hepatomegaly. Diffuse increased echogenicity. LIVER VASCULATURE: Normal directional flow of the main portal vein and hepatic veins. GALLBLADDER: Hydropic measuring 4 cm in transverse dimension. No stones. Normal wall thickness. No p ericholecystic fluid. ULTRASOUND-DETECTED BUTLER'S SIGN: Negative. INTRAHEPATIC DUCTS AND COMMON DUCT: Common bile duct measuring the upper limits of normal at 6 mm. N o filling defects. INFERIOR VENA CAVA: Normal flow. AORTA: No aneurysm. RIGHT KIDNEY: Normal size. Normal echogenicity. Known cysts. No hydronephrosis. No calcifica tions. LEFT KIDNEY: Normal size. Normal echogenicity. Known cysts. No hydronephrosis. No calcificat ions. SPLEEN: Normal size. No solid masses. PERITONEAL AND PLEURAL SPACES: Moderate ascites. OTHER: No other significant finding. IMPRESSION: Hepatomegaly and moderate ascites. Diffuse increased echogenicity of the liver, which m ay represent hepatic steatosis or other hepatitis. Mildly hydropic gallbladder without gallstones or other findings of acute cholecystitis. Common bile duct measuring at the upper limits of normal at 6 mm. TECHNICAL DOCUMENTATION: JOB ID: [id number] 2010 [employer]- All Rights Reserved Reading location - IP/workstation name: [email or web address]
[2020-02-02 19:23] VITALS: BP 147/99
== END 2020-02-02 19:23 | disposition home or self-care (01) ==
LOC: ER 13:44
DX: N20.0 Calculus of kidney (principal); R18.8 Other ascites; R16.0 Hepatomegaly, not elsewhere classified; R17 Unspecified jaundice; R10.9 Unspecified abdominal pain; R14.0 Abdominal distension (gaseous); F10.10 Alcohol abuse, uncomplicated; Z88.8 Allergy status to other drugs, medicaments and biological substances
CPT/HCPCS: 36415; 71046; 74176; 76700; 80053; 81001; 82150; 83605; 83690; 83880; 85025; 93976; 99284